=== PATIENT | female | born 1950 | race Caucasian/White ===

== ENCOUNTER 2021-04-11 14:41 | Emergency (ER) | payer OTHER ==
[~2021-04-11] VITALS: Ht 172.7 cm; Wt 108.9 kg
[~2021-04-11 14:41] MED LIST: NORPTMEDS CO
[2021-04-11 19:21] VITALS: BP 96/52
== END 2021-04-11 20:00 | disposition home or self-care (01) ==
LOC: ER 14:41
DX: M17.12 Unilateral primary osteoarthritis, left knee (principal); M25.462 Effusion, left knee; E66.9 Obesity, unspecified; F32.9 Major depressive disorder, single episode, unspecified; Z68.36 Body mass index [BMI] 36.0-36.9, adult
CPT/HCPCS: 73562

== ENCOUNTER 2024-02-01 10:20 | Emergency (ER) | payer OTHER ==
[~2024-02-01] VITALS: Ht 172.7 cm; Wt 115.4 kg
[2024-02-01] MEDS ORDERED: BENZ200C64 PO (12:12)
[2024-02-01] MEDS ORDERED: AZIT500T66 PO (12:12)
[2024-02-01] MEDS: cefTRIAXone SOD 1,000 MG VL IM ONE (12:16)
[2024-02-01] MEDS: ACETAMINOPHEN 500 MG TAB PO ONE (12:17)
[2024-02-01 12:34] VITALS: BP 124/67; PULSE 95; RESP 16; TEMP 99.2; O2SAT 95
== END 2024-02-01 12:38 | disposition home or self-care (01) ==
LOC: ER 10:20
DX: J20.9 Acute bronchitis, unspecified (principal); J03.90 Acute tonsillitis, unspecified; F32.9 Major depressive disorder, single episode, unspecified
CPT/HCPCS: 71046; 96372; 99283; J0696